=== PATIENT | male | born 1945 | race Caucasian/White ===

== ENCOUNTER 2020-05-15 12:32 | Emergency (ER) | payer MEDICARE, MEDICAID, SELFPAY ==
[2020-05-15 12:46] VITALS: BP 135/72; PULSE 101; RESP 16; TEMP 36.9; O2SAT 96; BMI 37.5
--- NOTE | 2020-05-15 13:06 | ED.SKABFB ---
HPI - Skin/Abscess/Foreign Bdy General Chief complaint: Skin/Abscess/Foreign Body Stated complaint: cyst Time Seen by Provider: 05/15/20 12:56 Source: patient Mode of arrival: ambulatory Limitations: no limitations History of Present Illness HPI narrative: 74 yo male with history of diabetes presents to the ED with tender, red, warm lump on his upper left back worsening over the last 2 weeks. He states he noticed some drainage of pus from the area but has not been able to fully see if because of its positioning. He has never had an abscess before. He denies fever or chills. He admits to poor glucose control with sugars in the 200s. He is not on insulin. MD complaint: abscess/boil Onset (ago): week(s) (2) Tetanus up to date: no Location: back Severity: moderate Quality: aching and constant Pain Consistency: constant Relieving factors: none Exacerbating factors: palpation Context: none Associated symptoms: denies other symptoms Treatments prior to arrival: none Related Data Previous Rx's Medication Instructions Recorded cephalexin 500 mg PO Q8H 7 Days #21 cap 05/15/20 doxycycline monohydrate 100 mg PO BID #14 cap 05/15/20 Allergies Allergy/AdvReac Type Severity Reaction Status Date / Time No Known Allergies Allergy Unverified 11/28/19 14:37 Review of Systems Review of Systems: Constitutional: No Fever, No Chills Gastrointestinal: No Nausea, No Vomiting, No Diarrhea, No abdominal Pain Musculoskeletal: No joint pain, No Myalgias Skin: + Skin Lesions, No rash Heme/Lymph: No Bruising, No Lymphadenopathy Endocrine: No Polyuria, No Polydipsia PMFSH Past Medical History Medical History Diabetes Surgical History (Updated 05/15/20 @ 12:49 by Bee Adames) History of vasectomy Hx of cholecystectomy Social History Social History Smoked in Last 30 Days: No Use of substances other than those prescribed or required for medical reasons: No Advance Directives: Yes Advance Directives Information Provided: Yes Advance Directives on File: No Physical Exam Vital Signs: Vital Signs: Last Vital Signs Temp 98.4 F 05/15/20 12:46 Pulse 101 H 05/15/20 12:46 Resp 16 05/15/20 12:46 BP 135/72 05/15/20 12:46 Pulse Ox 96 05/15/20 12:46 Body Mass Index 37.5 Appearance: Alert. Oriented X3. No acute distress. HEENT: normal inspection CVS: Normal heart rate and rhythm. Pulses normal. Respiratory: No respiratory distress. Skin: Skin warm and dry. Normal skin color. Normal skin turgor. Back: upper left back with 5cm enlarged, tender area with central scabbing and drainage of pus, mild surrounding erythema Extremities: atruamatic, no edema Neuro: Oriented X 3. No motor deficit. No sensory deficit. Course Course Course Narrative: 74 y/o male presenting with abscess to left upper back, amenable to drainage. see procedure note. will give abx given DM hx. Plan for re-evaluation in 2 days for packing removal. Procedures Abscess I/D Site: back Side (if applicable): left Local Anesthetic: lidocaine 2% Amount of anesthesia used (mL): 2 Sent for culture/gram staining?: No Irrigation: Yes Packing used?: iodoform Critical Care Time Critical Care Time Critical Care Time: No Discharge Plan Discharge Clinical Impression: Abscess of skin or subcutaneous tissue Qualifiers: Site of cutaneous abscess: trunk Site of cutaneous abscess of trunk: back Qualified Code(s): L02.212 - Cutaneous abscess of back [any part, except buttock] Patient Disposition: Home, Self-Care Instructions: Abscess Incision and Drainage (DC) Additional Instructions: Keep area clean and dry. Cover with gauze. Come back to the ER in 2 days for packing removal and re-evaluation. Take the prescribed antibiotics as directed. Keep tight glucose control to help allow the wound to heal appropriately. If you develop worsening pain, redness, warmth or increase in drainage come back to the ER for further evaluation. Prescriptions: New doxycycline monohydrate 100 mg capsule 100 mg PO BID Qty: 14 RF: 0 cephalexin 500 mg capsule 500 mg PO Q8H 7 Days Qty: 21 RF: 0
[2020-05-15] MEDS: Lidocaine HCl 2 % MPF 5 ML VIAL INFILTRATI (13:31)
== END 2020-05-15 13:37 | disposition home or self-care (01) ==
PROVIDERS: Emergency Provider Emergency Medicine; PCP Internal Medicine
DX: L02.212 Cutaneous abscess of back [any part, except buttock and flank] (principal); E11.9 Type 2 diabetes mellitus without complications
CPT/HCPCS: 10060; 99283; 99284

== ENCOUNTER 2020-05-17 07:47 | Emergency (ER) | payer MEDICARE, MEDICAID, SELFPAY ==
[2020-05-17 07:51] VITALS: BP 151/80; PULSE 83; RESP 16; TEMP 36.5; O2SAT 97; BMI 37.9
--- NOTE | 2020-05-17 08:20 | ED.WOUNDLAC ---
HPI - Wound/Laceration General Chief Complaint: Wound/Laceration Stated Complaint: WOUND CHECK Time Seen by Provider: 05/17/20 08:13 Source: patient Mode of arrival: ambulatory Limitations: no limitations History of Present Illness HPI narrative: Patient comes emergency room for a wound check. Patient had an abscess drained on his left upper back 2 days ago. Patient is currently taking doxycycline and cephalexin, states he feels better, denies fever chills, states the pain has greatly improved. Related Data Previous Rx's Medication Instructions Recorded cephalexin 500 mg PO Q8H 7 Days #21 cap 05/15/20 doxycycline monohydrate 100 mg PO BID #14 cap 05/15/20 Allergies Allergy/AdvReac Type Severity Reaction Status Date / Time No Known Allergies Allergy Unverified 11/28/19 14:37 Review of Systems Review of Systems: Constitutional : No Weight loss, No Fever, No Chills, No Night Sweats, No Fatigue, No Malaise ENT/Mouth : No Hearing loss, No Ear Pain, No Nasal Congestion, No Sinus Pain, No Hoarseness, No sore throat, No Rhinorrhea, No Swallowing Difficulty Eyes: No Eye Pain, No Swelling, No Redness, No Foreign Body, No Discharge, No Vision Changes Cardiovascular : No Chest Pain, No SOB, No Dyspnea on Exertion, No Orthopnea, No Edema, No Palpitations Respiratory : No Cough, No Sputum, No Wheezing, No Smoke Exposure, No Dyspnea Gastrointestinal : No Nausea, No Vomiting, No Diarrhea, No Constipation, No abdominal Pain, No Hematochezia, No Melena Genitourinary : no irregular bleeding, No Dysuria, No Urinary Frequency, No Hematuria, No Urinary Incontinence, No Urgency, No Flank Pain, No Urinary Flow Changes, No Hesitancy Musculoskeletal : No joint pain, No Myalgias, No Joint Swelling Skin : Healing drain abscess in the back Neuro : No Weakness, No Numbness, No Paresthesias, No Loss of Consciousness, No Dizziness, No Headache Psych : No Anxiety/Panic, No Depression, No SI/HI/AH/VH, No Social Issues, Heme/Lymph: No Bruising, No Bleeding,No Lymphadenopathy Endocrine : No Polyuria, No Polydipsia, No Temperature Intolerance PMFSH Past Medical History Medical History Diabetes Surgical History History of vasectomy Hx of cholecystectomy Social History Social History Advance Directives: No Advance Directives Information Provided: No Physical Exam Vital Signs: Vital Signs: Last Vital Signs Temp 97.7 F 05/17/20 07:51 Pulse 83 05/17/20 07:51 Resp 16 05/17/20 07:51 BP 151/80 H 05/17/20 07:51 Pulse Ox 97 05/17/20 07:51 Body Mass Index 37.9 Appearance: Alert. Oriented X3. No acute distress. Eyes: Pupils equal, round and reactive to light. ENT: Pharynx normal. Neck: Normal inspection. Neck supple. No lymph nodes noted. No crepitus CVS: Normal heart rate and rhythm. Pulses normal. Normal S1 and S2 Respiratory: No respiratory distress. Breath sounds normal. No Wheezing. No rales Abdomen: Soft and nontender. No rigidity. No distention. good BS x4 Skin: Skin warm and dry. Upper back there is I drained incision in the upper back, with packing. There is a brown eschar at the 9 o'clock position, at this time it does not look necrotic, the surrounding tissue around the incision site looks slightly friable Extremities: No lower extremity edema. No lower extremity edema. No Lacerations. No Rash Neuro: Oriented X 3. No motor deficit. No sensory deficit. Moving all extermities. No slurred speech. Course Course Course Narrative: Patient's packing was removed, still has moderate purulence draining. I discussed with the patient that we should go ahead and pack it again, and have him come back in 48 hours for wound check again. The surrounding area looks slightly erythematous, nontender to touch. Patient has no fever. As mentioned above, he is currently on antibiotics. I discussed with the patient that he has to return in 48 hours to get the packing removed or changed depending on how the wound is healing. Discharge Plan Discharge Clinical Impression: Wound check, abscess Patient Disposition: Home, Self-Care Additional Instructions: Please continue taking your antibiotics as prescribed. Please return in 48 hours for wound check Prescriptions: No Action doxycycline monohydrate 100 mg capsule 100 mg PO BID Qty: 14 RF: 0 cephalexin 500 mg capsule 500 mg PO Q8H 7 Days Qty: 21 RF: 0
== END 2020-05-17 08:52 | disposition home or self-care (01) ==
PROVIDERS: Emergency Provider Emergency Medicine; PCP Internal Medicine
DX: L02.212 Cutaneous abscess of back [any part, except buttock and flank] (principal); Z79.899 Other long term (current) drug therapy; Z48.00 Encounter for change or removal of nonsurgical wound dressing
CPT/HCPCS: 99283

== ENCOUNTER 2020-05-19 07:59 | Emergency (ER) | payer MEDICARE, MEDICAID, SELFPAY ==
[2020-05-19 08:27] VITALS: BP 138/99; PULSE 91; RESP 14; TEMP 36.6; O2SAT 98; BMI 37.9
--- NOTE | 2020-05-19 09:26 | ED.RECABL ---
HPI - Recheck/Abnormal Lab/Rx General Stated Complaint: wound check Time Seen by Provider: 05/19/20 09:10 Source: patient Mode of arrival: ambulatory Limitations: no limitations History of Present Illness HPI narrative: Left upper back/posterior shoulder abscess I and D on May 15 subsequently returned on May 17 for removal and was repacked returns today as instructed for packing removal he is on Keflex and doxycycline. He has no other complaints. MD complaint: wound re-check Initial visit (ago): day(s) Initial visit for: abscess Symptoms since prior visit: no new symptoms Context: planned re-check Treatments prior to arrival: dressings Related Data Previous Rx's Medication Instructions Recorded cephalexin 500 mg PO Q8H 7 Days #21 cap 05/15/20 doxycycline monohydrate 100 mg PO BID #14 cap 05/15/20 cephalexin 500 mg PO BID 3 Days #6 cap 05/21/20 doxycycline hyclate 100 mg PO BID 3 Days #6 tab 05/21/20 Allergies Allergy/AdvReac Type Severity Reaction Status Date / Time No Known Allergies Allergy Unverified 11/28/19 14:37 Review of Systems Review of Systems: Constitutional: No Weight loss, No Fever, No Chills, No Night Sweats, No Fatigue, No Malaise ENT/Mouth: No Hearing loss, No Ear Pain, No Nasal Congestion, No Sinus Pain, No Hoarseness, No sore throat, No Rhinorrhea, No Swallowing Difficulty Eyes: No Eye Pain, No Swelling, No Redness, No Foreign Body, No Discharge, No Vision Changes Cardiovascular: No Chest Pain, No SOB, No Dyspnea on Exertion, No Orthopnea, No Edema, No Palpitations Respiratory: No Cough, No Sputum, No Wheezing, No Dyspnea Gastrointestinal: No Nausea, No Vomiting, No Diarrhea, No Constipation, No abdominal Pain, No Hematochezia, No Melena Genitourinary: No Dysuria, No Urinary Frequency, No Hematuria, No Urinary Incontinence, No Urgency, No Flank Pain, No Urinary Flow Changes, No Hesitancy Musculoskeletal: No joint pain, No Myalgias, No Joint Swelling Skin: No Skin Lesions, No rash, as noted per HPI Neuro: No Weakness, No Numbness, No Paresthesias, No Loss of Consciousness, No Dizziness, No Headache Psych: No Social Issues Heme/Lymph: No Bruising, No Bleeding,No Lymphadenopathy Endocrine: No Polyuria, No Polydipsia, No Temperature Intolerance Yes all other systems are reviewed and are negative [facility] Past Medical History Medical History Diabetes Surgical History History of vasectomy Hx of cholecystectomy Social History Social History Advance Directives: Yes Advance Directives Information Provided: No Advance Directives on File: No Physical Exam Vital Signs: Vital Signs: Last Vital Signs Temp 98 F 05/19/20 08:27 Pulse 91 05/19/20 08:27 Resp 14 05/19/20 08:27 BP 138/99 H 05/19/20 08:27 Pulse Ox 98 05/19/20 08:27 Body Mass Index 37.9 Reviewed Const: General: cooperative and healthy appearing; No acute distress or intoxicated appearing Nutritional Appearance: average body habitus Orientation/consciousness: patient oriented x3 HENMT: Head: Yes normal to inspection Ears: hearing grossly normal bilaterally Neck: Neck: Yes normal visual inspection, No positive Brudzinski's sign, No positive Kernig's sign and No tender Thyroid: Thyroid normal Chest: Chest palpation & inspection: normal inspection of the chest Resp: Effort & Inspection: normal respiratory effort Auscultation: clear to auscultation bilaterally Cardio: Jugular venous distension: no JVD Rhythm: regular rhythm Heart sounds: S1 normal heart sound present and S2 normal heart sound present : General: Yes no CVA tenderness Back/Spine/Pelvis: Back: no CVA tenderness Skin: General skin exam: no rashes or lesions noted Full body images: 1. Area of previously incised abscess with packing in place. There is only mild erythema directly to the site. There is no drainage from the site. No induration. Neuro: General: patient oriented x3 Extrem: General: Yes normal to inspection Course Course Course Narrative: Site appears to be healing well no complaints. Packing removed no further expressible drainage. No need for any additional packing. He will finish his course of doxycycline advised to follow-up with his primary care doctor for recheck in several days and this may take a while to close given the depth of the abscess. He verbalized understanding offers no other complaints. Comfortable plan. Discharge Plan Discharge Clinical Impression: Abscess packing removal Patient Disposition: Home, Self-Care Instructions: Abscess Follow-up (ED) Additional Instructions: Please continue to take her antibiotics as previously prescribed The previously abscess site on the posterior left shoulder appears to be healing well The packing was removed At this time this site does not need to be repacked. Given the nature of the of abscess location please keep this dry and clean Warm compresses Have recheck in 3-5 days at your primary care Return if any concerns or worsening symptoms Thank you Prescriptions: No Action doxycycline monohydrate 100 mg capsule 100 mg PO BID Qty: 14 RF: 0 cephalexin 500 mg capsule 500 mg PO Q8H 7 Days Qty: 21 RF: 0 doxycycline hyclate 100 mg tablet 100 mg PO BID 3 Days Qty: 6 RF: 0 cephalexin 500 mg capsule 500 mg PO BID 3 Days Qty: 6 RF: 0 Referrals: Pearl Nino MD [Primary Care Provider] - 3 days Interventions: ED Discharge Assessment Last Done: 05/19/20 09:34 Discharge Date/Time: 05/19/20 09:40
== END 2020-05-19 09:40 | disposition home or self-care (01) ==
PROVIDERS: Emergency Provider Emergency Medicine Emergency Medical Services; PCP Internal Medicine
DX: L02.212 Cutaneous abscess of back [any part, except buttock and flank] (principal); M54.6 Pain in thoracic spine
CPT/HCPCS: 99282

== ENCOUNTER 2020-05-21 08:59 | Emergency (ER) | payer MEDICARE, MEDICAID, SELFPAY ==
[2020-05-21 11:13] VITALS: BP 117/77; PULSE 97; RESP 17; TEMP 36.8; O2SAT 97; BMI 44.2
--- NOTE | 2020-05-21 11:23 | ED.RECABL ---
HPI - Recheck/Abnormal Lab/Rx General Chief Complaint: Skin/Abscess/Foreign Body Stated Complaint: follow up boil Time Seen by Provider: 05/21/20 11:15 Source: patient Mode of arrival: ambulatory Limitations: no limitations History of Present Illness HPI narrative: 74-year-old male presenting to the ED for recheck wound Left upper back/posterior shoulder I and D on May 15 return on May 17 for removal of packing and was repacked returned again on 05/19/2020 for recheck although did not have packing replaced was instructed to follow with PCP although patient came here. Reports he still has 2 days of the doxycycline and Keflex. He was prescribed a total 7 days for antibiotics. Denies any other symptoms complaints or concerns at this time. MD complaint: wound re-check Initial visit (ago): day(s) Initial visit for: cellulitis and abscess Returns today for: wound recheck and cellulitis follow-up Symptoms since prior visit: no new symptoms and improved Associated symptoms: none Treatments prior to arrival: given antibiotics on (See above) Related Data Previous Rx's Medication Instructions Recorded cephalexin 500 mg PO Q8H 7 Days #21 cap 05/15/20 doxycycline monohydrate 100 mg PO BID #14 cap 05/15/20 cephalexin 500 mg PO BID 3 Days #6 cap 05/21/20 doxycycline hyclate 100 mg PO BID 3 Days #6 tab 05/21/20 Allergies Allergy/AdvReac Type Severity Reaction Status Date / Time No Known Allergies Allergy Unverified 11/28/19 14:37 Review of Systems Review of Systems: Constitutional : No Fever, No Chills, Skin : + Wound/surrounding erythema, No skin laceration, No Foreign bodies, No rash Neuro : No Weakness, No Numbness/tingling Yes all other systems are reviewed and are negative PMFSH Past Medical History Attestation statement: The following information was validated with the patient. Medical History Diabetes Surgical History History of vasectomy Hx of cholecystectomy Social History Social History Advance Directives: Yes Advance Directives Information Provided: No Advance Directives on File: No Physical Exam Vital Signs: Vital Signs: Last Vital Signs Temp 98.3 F 05/21/20 11:13 Pulse 97 05/21/20 11:13 Resp 17 05/21/20 11:13 BP 117/77 05/21/20 11:13 Pulse Ox 97 05/21/20 11:13 Body Mass Index 44.2 vital signs have been reviewed as normal and appeared to be correct. Blood pressure normal. Heart rate normal. Respiration rate normal. Temperature normal. Oxygen saturation normal. Appearance: Alert. Oriented X3. No acute distress. Head: Normal external exam. Normocephalic. Atraumatic. Eyes: PERRLA. EOMI. Conjunctiva and sclera normal. Eyelids normal. ENT: Pharynx normal. Uvula midline. Moist mucous membranes. Neck: Normal inspection. Neck supple. FROM. No adenopathy. No meningeal signs. No neck mass noted. CVS: Normal heart rate and rhythm. Heart sound normal. Respiratory: No respiratory distress. Painless inspiration. Back: Full range of motion noted. Skin: Wound to left upper back/posterior left shoulder no purulent drainage noted or foreign bodies. Mild surrounding erythema. Skin warm and dry. Normal skin color. Normal skin turgor. No rashes/lesions/lacerations noted. Extremities: Extremities exhibit normal range of motion. Extremities nontender. Neuro: Oriented X 3. No motor deficit. No sensory deficit. Reflexes normal. Course Course Course Narrative: 74-year-old male presenting for his 3rd recheck for wound that was I indeed on May 15 placed on doxycycline and Keflex for a total of 7 days on exam today patient has mild surrounding erythema no purulent drainage I flushed it twice with normal saline and no drainage. Place the nonadherent dressing. Explained to the patient that I would put him on 3 additional days of antibiotics for a total of 10 days. Instructed to follow up with his primary care provider or wound clinic and if he cannot get into Wound Clinic to follow up with his primary care provider. He understood this and agree with the plan. MDM - Recheck/Abnormal Lab/Rx Medical Records Attestation: I reviewed the patient's medical records. Discharge Plan Discharge Clinical Impression: Encounter for recheck of abscess following incision and drainage Patient Disposition: Home, Self-Care Instructions: Wound Healing and Your Diet (ED) Additional Instructions: You can continue taking your previously prescribed antibiotics as previously prescribed and please follow-up with your primary care provider within the next week for a follow-up for your wound and I gave you the number below for wound care call them today to see if you can follow-up within the next week if not please call your primary care provider. I will not be changing her antibiotics today another 3 days for total of 10 days instead of 7. Prescriptions: New doxycycline hyclate 100 mg tablet 100 mg PO BID 3 Days Qty: 6 RF: 0 cephalexin 500 mg capsule 500 mg PO BID 3 Days Qty: 6 RF: 0 No Action doxycycline monohydrate 100 mg capsule 100 mg PO BID Qty: 14 RF: 0 cephalexin 500 mg capsule 500 mg PO Q8H 7 Days Qty: 21 RF: 0 Referrals: Kallie Joe PA [Physician [employer]] - 1 day (Call this week to make a follow-up appointment within the next 1-2 weeks if not follow up with her primary care provider) Print Language: Belgian
== END 2020-05-21 11:45 | disposition home or self-care (01) ==
LOC: HO.ED 11:27
PROVIDERS: Emergency Provider Emergency Medicine Emergency Medical Services; PCP Internal Medicine
DX: L02.212 Cutaneous abscess of back [any part, except buttock and flank] (principal); Z79.899 Other long term (current) drug therapy
CPT/HCPCS: 99283

== ENCOUNTER 2020-06-03 08:56 | Outpatient (RCR) | payer MEDICARE, MEDICAID, SELFPAY | END 2020-06-09 13:53 | disposition home or self-care (01) | LOC: HO.WCC 08:56 | PROVIDERS: Visit Provider Surgery | DX: L02.212 Cutaneous abscess of back [any part, except buttock and flank] (principal) | CPT/HCPCS: 99212 ==

== ENCOUNTER 2020-10-23 09:13 | Emergency (ER) | payer MEDICARE, MEDICAID, SELFPAY ==
--- NOTE | ~2020-10-23 | CT_ITS ---
EXAMINATION: CT ABDOMEN AND PELVIS WITH CONTRAST CLINICAL INFORMATION: Abdominal pain nausea and vomiting. Distended. COMPARISON: CT scan of September 28, 2013 TECHNIQUE: Multidetector volumetric images were obtained from the superior aspect of the liver through the pubic symphysis following administration 85 mL of Omnipaque 350 intravenous contrast. Sagittal and coronal reformatted images were obtained on the technologist's workstation. Oral contrast: No This CT examination was performed using dose optimization techniques as appropriate, variously including the following: *Automated exposure control *Adjustment of mA and/or kV according to patient size (this includes techniques or standardized protocols for targeted exams where dose is matched to indication/reason for exam; i.e. extremities or head) *Use of iterative reconstruction technique DLP: 759 mGy-cm FINDINGS: LUNG BASES: The visualized lung bases are unremarkable. There is right middle lobe scarring present. No pleural or pericardial effusion. Coronary artery calcifications present as well as aortic and mitral valve calcifications. LIVER, GALLBLADDER, AND BILIARY TREE: There is fatty infiltration of the liver. No focal mass is seen. No intrahepatic bile duct dilatation. There is a Eden's lobe present with vertical span of approximately 25 cm. Gallbladder is not identified. PANCREAS: Unremarkable. SPLEEN: Unremarkable. ADRENAL GLANDS: Unremarkable. KIDNEYS AND URETERS: There are bilateral renal cysts present the largest within the left kidney measuring approximately 9 x 7 cm in size. There is fullness of the upper collecting systems bilaterally but with normal-appearing ureters. No calculi identified. A few of the low-density renal lesions are too small to definitely characterize as cyst. BLADDER: Unremarkable. GASTROINTESTINAL TRACT: No dilated loops of large or small bowel. No free air or free fluid. No pericolonic inflammatory change is seen. The appendix is not visualized. ABDOMINAL WALL: No significant hernia is appreciated. LYMPH NODES: Normal. VASCULAR: Mild aortoiliac calcified plaque without abdominal aortic aneurysm. Portal vein is patent. PELVIC VISCERA: Unremarkable. OSSEOUS STRUCTURES: No destructive bony lesions identified. Multilevel degenerative disc disease is seen. CT/CT abdomen pelvis w con IMPRESSION: Fatty infiltration of the liver with hepatomegaly. Bilateral renal cysts without evidence of obstructive uropathy. No evidence of ileus or obstruction.
[2020-10-23 09:26] VITALS: BP 164/75; PULSE 88; RESP 16; TEMP 37.1; O2SAT 95; BMI 37.5
--- NOTE | 2020-10-23 09:26 | ED_ITS ---
HPI - Nausea/Vomiting/Diarrhea General Chief complaint: Abdominal Pain Stated complaint: vomiting Time Seen by Provider: 10/23/20 09:25 Source: patient Mode of arrival: ambulatory Limitations: no limitations History of Present Illness MD elicited complaint: nausea, vomiting and abdominal pain Onset (ago): day(s) (last night) Description of vomiting: food contents Associated nausea: Yes Associated abdominal pain: Yes Location of pain: diffuse Radiation: diffuse Pain consistency: constant Severity: moderate Quality: aching Exacerbating factors: eating (ate a large amount of hard salami) Relieving factors: none Context: possible food poisoning Associated symptoms: denies other symptoms Related Data Previous Rx's Medication Instructions Recorded cephalexin 500 mg capsule 500 mg PO Q8H 7 Days #21 cap 05/15/20 doxycycline monohydrate 100 mg 100 mg PO BID #14 cap 05/15/20 capsule cephalexin 500 mg capsule 500 mg PO BID 3 Days #6 cap 05/21/20 doxycycline hyclate 100 mg tablet 100 mg PO BID 3 Days #6 tab 05/21/20 ondansetron 4 mg disintegrating 4 mg PO Q8H PRN #20 tab 10/23/20 tablet Allergies Allergy/AdvReac Type Severity Reaction Status Date / Time No Known Allergies Allergy Unverified 11/28/19 14:37 Review of Systems Review of Systems: Constitutional : No Weight loss, No Fever, No Chills ENT/Mouth : No sore throat, No Rhinorrhea Eyes: No Swelling, No Redness Cardiovascular : No Chest Pain, No SOB, NoEdema Respiratory : No Cough, No Sputum, No Wheezing Gastrointestinal : Positive Nausea, Positive Vomiting, no Diarrhea, positive abdominal Pain, No Hematochezia, No Melena Genitourinary : No Dysuria, No Urinary Frequency, No Hematuria, No Urgency Musculoskeletal : No joint pain, No Myalgias, No Joint Swelling Skin : No Skin Lesions, No rash Neuro : No Weakness, No Numbness, No Dizziness, No Headache Psych : No Anxiety/Panic, No Depression Heme/Lymph: No Bruising, No Lymphadenopathy Endocrine : No Polyuria, No Polydipsia All other systems reviewed and are negative. Gastrointestinal: Gastrointestinal: Reports nausea PMFSH Past Medical History Attestation statement: The following information was validated with the patient. Medical History Diabetes Surgical History History of vasectomy Hx of cholecystectomy Social History Social History (Updated 10/23/20 @ 09:33 by Hermila Saini DO) Alcohol intake: never Patient Tobacco Use Status: Never used Tobacco Use of substances other than those prescribed or required for medical reasons: No Advance Directives: Yes Advance Directives Information Provided: Yes Advance Directives on File: No Physical Exam Vital Signs: Vital Signs: Last Vital Signs Temp 98.7 F 10/23/20 09:26 Pulse 88 10/23/20 09:26 Resp 18 10/23/20 10:25 BP 164/75 H 10/23/20 09:26 Pulse Ox 95 10/23/20 09:26 Body Mass Index 37.5 Appearance: Alert. Oriented X3. No acute distress. Eyes: Pupils equal, round and reactive to light. ENT: Pharynx normal. Neck: Normal inspection. Neck supple. CVS: Normal heart rate and rhythm. Pulses normal. Respiratory: No respiratory distress. Breath sounds normal. Abdomen: Soft and distended mild diffuse ttp no rebound or guarding Skin: Skin warm and dry. Normal skin color. Normal skin turgor. Extremities: No lower extremity edema. No calf ttp Neuro: Oriented X 3. No motor deficit. No sensory deficit. Course Course Course Narrative: can tolerate saliva and drank 6 ounces of water - doubt food bolus impaction as these stay down but he keeps forcefully dry heaving and coughing but no emesis comes up able to tolerate PO CT scan negative stable for DC MDM - Nausea/Vomiting/Diarrhea MDM Narrative Medical decision making narrative: 74 yo male hx of DM prior cholecystectomy comes in with diffuse abdominal pain and distention post eating hard salami - at this time labs, IVF, IV morphine / zofran for symptom control, CT scan for obstruction. Dispo per results and findings. Lab Data Result diagrams: 10/23/20 10:16 10/23/20 10:16 Labs: Lab Results 10/23/20 10/23/20 10/23/20 Range/Units 10:16 10:16 10:16 WBC 9.7 (4.8-10.8) X10*3/uL RBC 5.48 (4.60-5.80) X10*6/uL Hgb 16.9 (14.0-18.0) g/dl Hct 48.6 (42-52) % MCV 88.7 (80-98) fL MCH 30.8 (27.0-33.0) pg MCHC 34.8 (31.0-36.0) g/dl RDW 13.5 (11.0-16.0) % Plt Count 210 (160-400) X10*3/uL MPV 9.5 (9.4-12.4) fL Immature Gran % (Auto) 1.1 H (0.0-0.4) % Neut % (Auto) 73.9 H (45-73) % Lymph % (Auto) 14.5 L (20-40) % [place] % (Auto) 5.7 (2-11) % Eos % (Auto) 4.4 H (0-4) % Baso % (Auto) 0.4 (0-2) % Lymph # (Auto) 1.4 (1.2-4.9) X10*3/uL [place] # (Auto) 0.6 (0.1-1.2) X10*3/uL Eos # (Auto) 0.4 (0.0-0.4) X10*3/uL Baso # (Auto) 0.0 (0.0-0.2) X10*3/uL Abs Immat Gran (auto) 0.11 H (0.00-0.03) X10*3/uL Absolute Neuts (auto) 7.2 (2.0-8.3) X10*3/uL Absolute Nucleated RBC 0.000 (0.0-0.012) X10*3/uL Nucleated RBC % (auto) 0.0 (0.0-0.2) /100WBC Sodium 139 (135-145) mmol/L Potassium 4.1 (3.3-5.1) mmol/L Chloride 104 (96-108) mmol/L Carbon Dioxide 22 (22-29) mmol/L Anion Gap 17 (12-20) BUN 7 L (9-16) mg/dL Creatinine 1.01 (0.5-1.4) mg/dL Estim Creat Clear Calc 76.6 Estimated GFR > 60 Random Glucose 362 H* (60-115) mg/dL Calcium 9.3 (8.4-10.2) mg/dL Magnesium 1.7 (1.6-2.6) mg/dL Total Bilirubin 1.3 H (0.0-1.0) mg/dL Direct Bilirubin 0.5 (0.0-0.5) mg/dL AST 22 (5-37) U/L ALT 29 (0-40) U/L Alkaline Phosphatase 109 (39-117) U/L Total Protein 7.1 (6.5-8.0) g/dL Albumin 4.3 (3.5-5.0) g/dL Lipase 25 (8-78) U/L Urine Color Urine Appearance Urine pH (5.0-8.0) Ur Specific [place] (1.005-1.025) Urine Protein (NEG-TRACE) MG/DL Urine Glucose (UA) (NEG) MG/DL Urine Ketones (NEG) MG/DL Urine Blood (NEG) Urine Nitrite (NEG) Ur Leukocyte Esterase (NEG) Urine RBC (0) /HPF Urine WBC (0-4) /HPF Ur Squamous Epith Cells /LPF Calcium Oxalate Crystal /LPF Urine Bacteria /LPF Urine Mucus /LPF COVID-19 (MARNIE) Negative (Negative) COVID-19 Clin Com See Note 10/23/20 Range/Units 10:17 WBC (4.8-10.8) X10*3/uL RBC (4.60-5.80) X10*6/uL Hgb (14.0-18.0) g/dl Hct (42-52) % MCV (80-98) fL MCH (27.0-33.0) pg MCHC (31.0-36.0) g/dl RDW (11.0-16.0) % Plt Count (160-400) X10*3/uL MPV (9.4-12.4) fL Immature Gran % (Auto) (0.0-0.4) % Neut % (Auto) (45-73) % Lymph % (Auto) (20-40) % [place] % (Auto) (2-11) % Eos % (Auto) (0-4) % Baso % (Auto) (0-2) % Lymph # (Auto) (1.2-4.9) X10*3/uL [place] # (Auto) (0.1-1.2) X10*3/uL Eos # (Auto) (0.0-0.4) X10*3/uL Baso # (Auto) (0.0-0.2) X10*3/uL Abs Immat Gran (auto) (0.00-0.03) X10*3/uL Absolute Neuts (auto) (2.0-8.3) X10*3/uL Absolute Nucleated RBC (0.0-0.012) X10*3/uL Nucleated RBC % (auto) (0.0-0.2) /100WBC Sodium (135-145) mmol/L Potassium (3.3-5.1) mmol/L Chloride (96-108) mmol/L Carbon Dioxide (22-29) mmol/L Anion Gap (12-20) BUN (9-16) mg/dL Creatinine (0.5-1.4) mg/dL Estim Creat Clear Calc Estimated GFR Random Glucose (60-115) mg/dL Calcium (8.4-10.2) mg/dL Magnesium (1.6-2.6) mg/dL Total Bilirubin (0.0-1.0) mg/dL Direct Bilirubin (0.0-0.5) mg/dL AST (5-37) U/L ALT (0-40) U/L Alkaline Phosphatase (39-117) U/L Total Protein (6.5-8.0) g/dL Albumin (3.5-5.0) g/dL Lipase (8-78) U/L Urine Color YELLOW Urine Appearance CLEAR Urine pH 5.5 (5.0-8.0) Ur Specific [place] 1.025 (1.005-1.025) Urine Protein NEG (NEG-TRACE) MG/DL Urine Glucose (UA) >=1000 H (NEG) MG/DL Urine Ketones 5 (NEG) MG/DL Urine Blood NEG (NEG) Urine Nitrite NEG (NEG) Ur Leukocyte Esterase NEG (NEG) Urine RBC 0 (0) /HPF Urine WBC 0 (0-4) /HPF Ur Squamous Epith Cells NONE /LPF Calcium Oxalate Crystal 2+ /LPF Urine Bacteria NONE /LPF Urine Mucus 1+ /LPF COVID-19 (MARNIE) (Negative) COVID-19 Clin Com Discharge Plan Discharge Clinical Impression: Vomiting Qualifiers: Vomiting type: unspecified Vomiting Intractability: non-intractable Nausea presence: with nausea Qualified Code(s): R11.2 - Nausea with vomiting, unspecified Patient Disposition: Home, Self-Care Instructions: Acute Nausea and Vomiting (ED) Additional Instructions: return to ED for any worsening symptoms or concerns CT scan of abdomen no acute findings. chronic issues: please follow up with your doctor regarding these, will likely just need surveillance Fatty infiltration of the liver with hepatomegaly. ? Bilateral renal cysts without evidence of obstructive uropathy. ? No evidence of ileus or obstruction.? Prescriptions: New ondansetron 4 mg tablet,disintegrating 4 mg PO Q8H PRN (Reason: nausea and vomiting) Qty: 20 RF: 0 No Action doxycycline monohydrate 100 mg capsule 100 mg PO BID Qty: 14 RF: 0 cephalexin 500 mg capsule 500 mg PO Q8H 7 Days Qty: 21 RF: 0 doxycycline hyclate 100 mg tablet 100 mg PO BID 3 Days Qty: 6 RF: 0 cephalexin 500 mg capsule 500 mg PO BID 3 Days Qty: 6 RF: 0 Referrals: Pearl Nino MD [Primary Care Provider] - 5 days
[2020-10-23 10:24] LABS: Basophils Percent Auto 0.4 % (0-2); Eosinophils Absolute Auto 0.4 X10*3/uL (0.0-0.4); Eosinophils Percent Auto 4.4 % (0-4); Hematocrit 48.6 % (42-52); Hemoglobin 16.9 g/dl (14.0-18.0); Imm Gran Abs Auto 0.11 X10*3/uL (0.00-0.03); Imm Gran Pct Auto 1.1 % (0.0-0.4); Lymphocytes Absolute Auto 1.4 X10*3/uL (1.2-4.9); Lymphocytes Percent Auto 14.5 % (20-40); MANUAL DIFF FLAG NO; Mean Corpuscular HGB Conc 34.8 g/dl (31.0-36.0); Mean Corpuscular Hemoglobin 30.8 pg (27.0-33.0); Mean Corpuscular Volume 88.7 fL (80-98); Mean Platelet Volume 9.5 fL (9.4-12.4); Monocytes Absolute Auto 0.6 X10*3/uL (0.1-1.2); Monocytes Percent Auto 5.7 % (2-11); Neutrophils Absolute Auto 7.2 X10*3/uL (2.0-8.3); Neutrophils Percent Auto 73.9 % (45-73); Platelet Count 210 X10*3/uL (160-400); Red Blood Count 5.48 X10*6/uL (4.60-5.80); Red Cell Distribution Width 13.5 % (11.0-16.0); White Blood Count 9.7 X10*3/uL (4.8-10.8)
[2020-10-23 10:25] VITALS: RESP 18
[2020-10-23] MEDS: ondansetron HCL 4 MG/2 ML VIAL IVPUSH (10:25)
[2020-10-23] MEDS: Metoclopramide HCl 10 MG/2 ML VIAL IVPUSH (10:25)
[2020-10-23] MEDS: Morphine Sulfate 4 MG/ML CARTRIDGE IVPUSH (10:25)
[2020-10-23] MEDS: diphenhydrAMINE HCL 50 MG/ML VIAL 25 MG IVPUSH (10:25)
[2020-10-23] MEDS: 0.9 % Sodium Chloride 1,000 ML 999 ML IVCONT (10:26)
[2020-10-23 10:28] LABS: Glucose Urine UA >=1000 MG/DL (NEG); Leukocyte Esterase Urine NEG (NEG); Nitrite Urine NEG (NEG); PH 5.5 (5.0-8.0); Specific Gravity - Urine 1.025 (1.005-1.025); Urine Blood NEG (NEG); Urine Ketones 5 MG/DL (NEG); Urine Protein NEG (NEG-TRACE)
[2020-10-23 10:30] LABS: Appearance Urine CLEAR; Color Urine YELLOW
[2020-10-23 10:35] LABS: Calcium Oxalate Crystals Urine 2+ /LPF; Mucus Urine 1+ /LPF; RBC Urine 0 /HPF (0); WBC Urine 0 /HPF (0-4)
[2020-10-23 10:48] LABS: COVID-19 Test Negative (Negative)
[2020-10-23 10:56] LABS: Alanine Aminotransferase 29 U/L (0-40); Albumin Level 4.3 g/dL (3.5-5.0); Alkaline Phosphatase 109 U/L (39-117); Anion Gap 17 (12-20); Aspartate Amino Transferase 22 U/L (5-37); Bilirubin Direct 0.5 mg/dL (0.0-0.5); Bilirubin Total 1.3 mg/dL (0.0-1.0); Blood Urea Nitrogen 7 mg/dL (9-16); Calcium 9.3 mg/dL (8.4-10.2); Carbon Dioxide 22 mmol/L (22-29); Chloride 104 mmol/L (96-108); Creatinine Clr Calc Pharmacy 76.6; Estimated Glomerular Filt Rate > 60; Glucose Random 362 mg/dL (60-115); Lipase 25 U/L (8-78); Magnesium 1.7 mg/dL (1.6-2.6); Potassium 4.1 mmol/L (3.3-5.1); Sodium 139 mmol/L (135-145); Total Protein 7.1 g/dL (6.5-8.0)
--- NOTE | 2020-10-23 11:42 | PC.NURSE ---
pt anxious, states he wants to go home because he feels better. PT awaits CT scan and tech has arrived to take pt to scan.
[2020-10-23] MEDS: iohexoL 350 MG/ML 100 ML INFUS..BTL 85 ML IV (12:02)
[2020-10-23 13:03] VITALS: BP 129/63; PULSE 77; RESP 16; O2SAT 99
== END 2020-10-23 13:27 | disposition home or self-care (01) ==
PROVIDERS: Emergency Provider Emergency Medicine; PCP Internal Medicine
DX: R11.2 Nausea with vomiting, unspecified (principal); R10.9 Unspecified abdominal pain; R19.7 Diarrhea, unspecified; Z20.822 Contact with and (suspected) exposure to COVID-19; Z79.899 Other long term (current) drug therapy
CPT/HCPCS: 36415; 74177; 80048; 80076; 81001; 83690; 83735; 85025; 87635; 96361; 96374; 96375; 99284; J1200; J2270; J2405; J2765; Q9967

== ENCOUNTER 2021-01-09 09:06 | Emergency (ER) | payer MEDICARE, MEDICAID, SELFPAY ==
--- NOTE | ~2021-01-09 | XR_ITS ---
EXAMINATION: XR CHEST CLINICAL INFORMATION: Cough and shortness of breath COMPARISON: None TECHNIQUE: Frontal view of the chest was obtained. FINDINGS: The cardiac and mediastinal contours are stable. The lungs are clear. There is no pleural effusion or pneumothorax. There is mild degenerative changes of the thoracic spine and curvature of the lower thoracic spine to the left. XR/XR chest 1V IMPRESSION: No evidence for acute disease in the chest.
[2021-01-09 09:15] VITALS: BP 124/76; PULSE 108; RESP 18; TEMP 36.8; O2SAT 94; BMI 37.3
--- NOTE | 2021-01-09 09:33 | ED_ITS ---
HPI - General Adult General Chief complaint: General Medical Stated complaint: UNABLE TO SLEEP Time Seen by Provider: 01/09/21 09:19 Source: patient Mode of arrival: ambulatory Limitations: no limitations History of Present Illness HPI narrative: 75 year old male with past medical history of diabetes presents to the emergency department with concerns of dry cough that started last night. He states that the cough started suddenly, and he has not been able to stop coughing, he states he was unable to sleep last night, because all he was doing was coughing. He denies sputum production. He denies chest pain, fevers, shortness of breath, chills, nausea, vomiting, diarrhea, weakness, recent sick contacts. Patient is up-to-date on COVID vaccines. He is not a smoker, never smoked. Onset (ago): day(s) (1) Severity: severe Severity scale (1-10): 10 Quality: constant Pain Consistency: constant Relieving factors: none Exacerbating factors: none Associated symptoms: denies other symptoms Treatments prior to arrival: none Related Data Previous Rx's Medication Instructions Recorded cephalexin 500 mg capsule 500 mg PO Q8H 7 Days #21 cap 05/15/20 doxycycline monohydrate 100 mg 100 mg PO BID #14 cap 05/15/20 capsule cephalexin 500 mg capsule 500 mg PO BID 3 Days #6 cap 05/21/20 doxycycline hyclate 100 mg tablet 100 mg PO BID 3 Days #6 tab 05/21/20 ondansetron 4 mg disintegrating 4 mg PO Q8H PRN #20 tab 10/23/20 tablet benzonatate 100 mg capsule 100 mg PO BID PRN #14 cap 01/09/21 (Marita Lozada) Allergies Allergy/AdvReac Type Severity Reaction Status Date / Time No Known Allergies Allergy Unverified 11/28/19 14:37 Review of Systems Review of Systems: Yes all other systems are reviewed and are negative Constitutional: Constitutional: Reports no additional constitutional complaints, Denies body ache(s), Denies chills, Denies fever(s), Denies headache(s) and Denies weakness Eyes: Eyes: Reports no additional eye complaints and Denies change in vision ENT: Reports system reviewed and no additional complaints, except as documented, Denies dizziness, Denies headache(s), Denies nasal congestion, Denies nasal discharge and Denies neck pain Cardiovascular: Cardiovascular: Reports no additional cardiovascular complaints, Denies chest pain, Denies leg edema and Denies dyspnea Respiratory: Respiratory: Reports no additional respiratory complaints, Reports cough and Denies dyspnea Gastrointestinal: Gastrointestinal: Reports no additional gastrointestinal complaints, Denies abdominal pain, Denies diarrhea, Denies nausea and Denies vomiting Genitourinary: Genitourinary: Denies urinary incontinence Musculoskeletal: Musculoskeletal: Reports no additional musculoskeletal complaints, Denies back pain, Denies arthralgias, Denies joint swelling, Denies neck pain, Denies numbness and Denies tingling Integumentary/Breasts: Skin/Breast: Reports system reviewed and no additional complaints, except as docu and Denies rash Neurologic: Reports system reviewed and no additional complaints, except as documented, Denies Abnormal speech present, Denies dizziness, Denies headache(s), Denies numbness, Denies tingling and Denies weakness PMFSH Past Medical History Attestation statement: The following information was validated with the patient. Source: old records reviewed and nursing notes reviewed Medical History Diabetes Surgical History History of vasectomy Hx of cholecystectomy Social History Social History (Updated 10/23/20 @ 09:33 by Hermila Saini DO) Alcohol intake: unknown Patient Tobacco Use Status: Never used Tobacco Use of substances other than those prescribed or required for medical reasons: No Advance Directives: Yes Advance Directives Information Provided: Yes Advance Directives on File: No Physical Exam Vital Signs: Vital Signs: Last Vital Signs Temp 98.3 F 01/09/21 09:15 Pulse 111 H 01/09/21 10:00 Resp 18 01/09/21 09:15 BP 124/76 01/09/21 09:15 Pulse Ox 93 01/09/21 10:00 Body Mass Index 37.3 Const: General: cooperative, healthy appearing, comfortable and no acute distress Orientation/consciousness: patient oriented x3 Limitations: no limitations HENMT: Head: Yes normal to inspection Ears: hearing grossly normal bilaterally General nose exam: Normal external nose present Face and sinus: Yes normal facial exam Mouth: Normal oral and palatal mucosa present Throat: Yes posterior oropharynx normal Eyes: General: appearance normal, both eyes and all related structures Pupils: Equal, round and reactive pupils present Neck: Neck: Yes normal visual inspection Chest: Chest palpation & inspection: normal inspection of the chest Resp: Effort & Inspection: normal respiratory effort Auscultation: clear to auscultation bilaterally Cardio: Rate: regular rate Rhythm: regular rhythm Peripheral pulses: Peripheral pulses 2+ throughout GI: Inspection: Yes normal to inspection Palpation (GI): Soft to palpation and nontender Auscultation: normal bowel sounds Back/Spine/Pelvis: Thoracic/Lumbar Spine: thoracic and lumbar spine normal to inspection Skin: General skin exam: no rashes or lesions noted Neuro: General: patient oriented x3, no focal motor deficits and normal sensation to monofilament Cranial nerves: Yes Equal, round and reactive pupils present Cognition (Neuro): normal cognition Speech: No Abnormal speech present Gait exam (Neuro): Normal gait present Motor exam (neuro): 5/5 motor strength present throughout Extrem: General: Yes normal to inspection Course Reevaluation(s) Reevaluation #1: Patient has been found to be COVID positive. He will be educated on isolation. He will also be educated on possible treatment with monoclonal antibodies, and will be provided with the information, which he can follow up with after he leaves the emergency department. An ambulatory 02 will be done prior to his D/C to ensure he is safe for DC home. At this time he is 95% on RA. Time: 09:48 Reevaluation #2: CXR negative. Ambulatory O2 between 93-95% with ambulation pulse around 100. Patient is afebrile at this time. He has been advised to return to the emergency department with new or worsening symptoms such as shortness of breath, fevers, chills. He is safe for discharge home, with PCP follow-up, and patient states he is interested in the monoclonal antibody infusion in [place] he has been given the information and they have been called. I shared with them his information and they will reach out to him around 11 am today to do his intake. Time: 10:02 Medical Decision Making [facility] Narrative Medical decision making narrative: 929 75-year-old male past medical history diabetes presents to the ED with a dry cough that started last night, that didn't allow him to sleep last night. He denies chest pain, shortness breath, fevers, chills, nausea, vomiting. He is vaccinated against COVID-19. No recent sick contacts. Not a smoker. Upon physical examination lungs are clear to auscultation, patient is in no acute distress. S1 and S2 appreciated free of murmurs. Abdomen soft nontender nondistended. No focal neuro deficits. Plan at this time is to obtain a chest x-ray, and COVID swab. Medical Records Medical records reviewed: Yes I reviewed the patient's medical records. Lab Data Lab results reviewed: Yes I reviewed the patient's lab results. Labs: Lab Results 01/09/21 Range/Units 09:20 COVID-19 (MARNIE) Positive A (Negative) COVID-19 Clin Com See Note Imaging Data Chest x-ray: Attestation: I personally reviewed and interpreted this imaging study as follows: Radiologist's impression: FINDINGS: The cardiac and mediastinal contours are stable. The lungs are clear. There is no pleural effusion or pneumothorax. There is mild degenerative changes of the thoracic spine and curvature of the lower thoracic spine to the left. XR/XR chest 1V IMPRESSION: No evidence for acute disease in the chest. ? Discharge Plan Discharge Clinical Impression: COVID-19, Cough Patient Disposition: Home, Self-Care Additional Instructions: We have provided you with information about monoclonal antibody infusions, a treatment that helps prevent the virus from worsening. They will reach out to you around 11 am to do your intake. Marita Karlakirill have been sent to your pharmacy for cough Follow up with your PCP Return to the emergency department with new or worsening symptoms We have tested you today for COVID 19 and you tested positive. Take tylenol or motrin if able as needed for pain or fever. Stay well hydrated with fluids like water, gatorade and/or powerade. Wash hands at home. If living with others try to self isolate if possible. If unable wear a mask around others in your home and wash hands frequently. You will need to self isolate for a total of 14 days from when your symptoms started. You should return to the emergency department for severe shortness of breath, chest pain or fever which does not respond to both tylenol and motrin at home. Prescriptions: New benzonatate [Tessalon Perles] 100 mg capsule 100 mg PO BID PRN (Reason: cough) Qty: 14 RF: 0 No Action doxycycline monohydrate 100 mg capsule 100 mg PO BID Qty: 14 RF: 0 cephalexin 500 mg capsule 500 mg PO Q8H 7 Days Qty: 21 RF: 0 doxycycline hyclate 100 mg tablet 100 mg PO BID 3 Days Qty: 6 RF: 0 cephalexin 500 mg capsule 500 mg PO BID 3 Days Qty: 6 RF: 0 ondansetron 4 mg tablet,disintegrating 4 mg PO Q8H PRN (Reason: nausea and vomiting) Qty: 20 RF: 0 Referrals: Pearl Nino MD [Primary Care Provider] - 2 days Interventions: ED Discharge Assessment Last Done: 01/09/21 10:36 Discharge Date/Time: 01/09/21 10:37
[2021-01-09 09:35] LABS: COVID-19 Test Positive (Negative)
[2021-01-09 10:00] VITALS: PULSE 111; O2SAT 93
== END 2021-01-09 10:37 | disposition home or self-care (01) ==
PROVIDERS: Emergency Provider Emergency Medicine; PCP Internal Medicine
DX: U07.1 COVID-19 (principal); R05.9 Cough, unspecified; Z79.899 Other long term (current) drug therapy
CPT/HCPCS: 36415; 71045; 87635; 99283; 99284

== ENCOUNTER 2022-01-27 15:06 | Emergency (ER) | payer MEDICARE, MEDICAID, SELFPAY ==
[2022-01-27 15:13] VITALS: BP 138/78; BP 153/84; PULSE 102; PULSE 99; RESP 16; TEMP 36.7; O2SAT 98; BMI 36.9
--- NOTE | 2022-01-27 15:37 | ED.FALL ---
HPI - Fall General Chief Complaint: Fall Stated Complaint: MECH FALL,L HIP PAIN/RESOLVED PER EMS Time Seen by Provider: 01/27/22 15:25 History of Present Illness HPI Narrative: Patient complains of left gluteal pain after a fall He was getting out of the car and somehow fell onto his buttocks, at 1st he did feel pain in his hip and was brought to the emergency room, but now he has no complaint except mild discomfort at the spot on his left gluteal area where he fell He did hit his head he has no neck pain no other back pain no numbness no weakness no tingling no arm or leg pains Related Data Previous Rx's Medication Instructions Recorded cephalexin 500 mg capsule 500 mg PO Q8H 7 days #21 caps 05/15/20 doxycycline monohydrate 100 mg 100 mg PO BID #14 caps 05/15/20 capsule cephalexin 500 mg capsule 500 mg PO BID Wound/cellulitis 3 05/21/20 days #6 caps doxycycline hyclate 100 mg tablet 100 mg PO BID Wound/cellulitis 3 05/21/20 days #6 tabs ondansetron 4 mg disintegrating 4 mg PO Q8H PRN nausea and 10/23/20 tablet vomiting #20 tabs benzonatate 100 mg capsule 100 mg PO BID PRN cough #14 caps 01/09/21 (Marita Lozada) Allergies Allergy/AdvReac Type Severity Reaction Status Date / Time No Known Allergies Allergy Unverified 11/28/19 14:37 Review of Systems Review of Systems: Positive for left buttock pain after a fall only when seated Negatives are no head injury no loss of consciousness no headache no neck pain no numbness weakness or tingling no other back pains no muscle weakness no loss of sensation no chest pain no fainting no feeling faint no dizziness no confusion no extremity pains or swelling Yes all other systems are reviewed and are negative PMFSH Past Medical History Source: nursing notes reviewed Medical History Diabetes Surgical History History of vasectomy Hx of cholecystectomy Social History Social History (Updated 10/23/20 @ 09:33 by Lydia Saini DO) Alcohol intake: unknown Patient Tobacco Use Status: Never used Tobacco Advance Directives: No Advance Directives Information Provided: Yes Physical Exam Vital Signs: Vital Signs: Last Vital Signs Temp 98.1 F 01/27/22 15:13 Pulse 99 01/27/22 15:13 Resp 16 01/27/22 15:13 BP 153/84 H 01/27/22 15:13 Pulse Ox 98 01/27/22 15:13 O2 Del Method 01/27/22 15:13 BMI result Body Mass Index 36.9 General appearance comfortable cheerful cooperative no acute distress Head is normocephalic atraumatic Neck is supple nontender The chest wall is nontender Respiratory no distress Abdomen soft nontender The back there is no tenderness to any bones or the upper back the only tenderness is over hematoma in the muscles of the left gluteal area which also has some mild ecchymosis, there is no break in the skin, patient has good range of motion in his back with no discomfort Extremities full range of motion x4 including full range in the left hip, ambulates normally and comfortably Skin no lacerations Neuro no focal motor sensory deficits Course Course Course Narrative: Patient with hematoma on the the left lower gluteal area, no bony tenderness, full range of motion in both legs, ambulates easily and has no discomfort except when he sits on the area Initially when patient fell he had some left hip pain but now that pain is gone and there is no tenderness in the left hip and there is no discomfort with movement of the hip or weight-bearing No blood thinners, he feels fine and refuses pain medication and is discharged Discharge Plan Discharge Clinical Impression: Traumatic hematoma of buttock Patient Disposition: Home, Self-Care Additional Instructions: There is no sign of any dangerous or serious injury at this time There is a swollen discolored hematoma, or bruise, of the left buttock This will probably change colors and get better over coming week or 2 Return to the ER for any difficulty walking any severe pain any worse condition or any concerns Prescriptions: No Action doxycycline monohydrate 100 mg capsule 100 mg PO BID Qty: 14 0RF cephalexin 500 mg capsule 500 mg PO Q8H 7 Days Qty: 21 0RF doxycycline hyclate 100 mg tablet 100 mg PO BID 3 Days Qty: 6 0RF cephalexin 500 mg capsule 500 mg PO BID 3 Days Qty: 6 0RF ondansetron 4 mg tablet,disintegrating 4 mg PO Q8H PRN (Reason: nausea and vomiting) Qty: 20 0RF benzonatate [Tessalon Perles] 100 mg capsule 100 mg PO BID PRN (Reason: cough) Qty: 14 0RF Interventions: ED Discharge Assessment Last Done: 01/27/22 15:47 Discharge Date/Time: 01/27/22 15:49
== END 2022-01-27 15:49 | disposition home or self-care (01) ==
PROVIDERS: Emergency Provider Emergency Medicine; PCP Internal Medicine
DX: M54.50 Low back pain, unspecified (principal); Z79.899 Other long term (current) drug therapy
CPT/HCPCS: 99282

== ENCOUNTER 2022-01-29 14:13 | Emergency (ER) | payer MEDICARE, MEDICAID, SELFPAY ==
--- NOTE | ~2022-01-29 | XR_ITS ---
EXAMINATION: CHEST 2 VIEWS CLINICAL INFORMATION: general weakness . COMPARISON: 01/09/2021. TECHNIQUE: AP frontal and lateral views of the chest obtained FINDINGS: The lungs are hypoexpanded with minimal basilar atelectasis. No focal infiltrate, effusion, edema, or pneumothorax. Cardiac and mediastinal silhouettes are within normal limits for technique. No acute bony abnormality seen XR/XR chest 2V IMPRESSION: Hypoexpanded with minimal basilar atelectasis similar to the prior study
--- NOTE | ~2022-01-29 | CT_ITS ---
EXAMINATION: NONCONTRAST HEAD CT NONCONTRAST CERVICAL SPINE CT INDICATION INFORMATION: Head and neck pain status post fall COMPARISON: Head CT 05/01/2014 TECHNIQUE: Separate noncontrast CT examinations of the head and cervical spine were performed. Coronal and sagittal images were created for each examination at the technologist workstation. This CT examination was performed using dose optimization techniques as appropriate, variously including the following: *Automated exposure control *Adjustment of mA and/or kV according to patient size (this includes techniques or standardized protocols for targeted exams where dose is matched to indication/reason for exam; i.e. extremities or head) *Use of iterative reconstruction technique DLP: 1419 mGy-cm FINDINGS: HEAD: No intra or extra-axial fluid collection, hemorrhage, or mass. No ventriculomegaly. No midline shift or herniation. Basal cisterns are patent. Paez-white matter differentiation is maintained. No territorial encephalomalacia. Proportional prominence of the ventricles and sulcal spaces is consistent with mild volume loss. There is no abnormal attenuation within the brain parenchyma. No calvarial fracture. Minimal mucosal thickening in the maxillary antra. CERVICAL SPINE: Alignment: Normal. No subluxation. Straightening of the normal cervical lordosis. No subluxation. Vertebra: No acute fracture. No prevertebral soft tissue swelling. Degenerative disc disease: Moderate diffuse cervical spondylosis characterized by disc height loss and endplate sclerosis and proliferative change with advanced multilevel facet arthrosis and bilateral uncovertebral spurring. Other findings: Visualized right lung apex appears clear. Left lung apex was not included in the [id number]. No cervical lymphadenopathy or mass identified. CT/CT cervical spine wo IV con IMPRESSION: 1. No intracranial hemorrhage or calvarial fracture. 2. No traumatic subluxation or acute cervical spine fracture.
--- NOTE | ~2022-01-29 | CT_ITS ---
EXAMINATION: NONCONTRAST HEAD CT NONCONTRAST CERVICAL SPINE CT INDICATION INFORMATION: Head and neck pain status post fall COMPARISON: Head CT 05/01/2014 TECHNIQUE: Separate noncontrast CT examinations of the head and cervical spine were performed. Coronal and sagittal images were created for each examination at the technologist workstation. This CT examination was performed using dose optimization techniques as appropriate, variously including the following: *Automated exposure control *Adjustment of mA and/or kV according to patient size (this includes techniques or standardized protocols for targeted exams where dose is matched to indication/reason for exam; i.e. extremities or head) *Use of iterative reconstruction technique DLP: 1419 mGy-cm FINDINGS: HEAD: No intra or extra-axial fluid collection, hemorrhage, or mass. No ventriculomegaly. No midline shift or herniation. Basal cisterns are patent. Paez-white matter differentiation is maintained. No territorial encephalomalacia. Proportional prominence of the ventricles and sulcal spaces is consistent with mild volume loss. There is no abnormal attenuation within the brain parenchyma. No calvarial fracture. Minimal mucosal thickening in the maxillary antra. CERVICAL SPINE: Alignment: Normal. No subluxation. Straightening of the normal cervical lordosis. No subluxation. Vertebra: No acute fracture. No prevertebral soft tissue swelling. Degenerative disc disease: Moderate diffuse cervical spondylosis characterized by disc height loss and endplate sclerosis and proliferative change with advanced multilevel facet arthrosis and bilateral uncovertebral spurring. Other findings: Visualized right lung apex appears clear. Left lung apex was not included in the [id number]. No cervical lymphadenopathy or mass identified. CT/CT head/brain wo IV con IMPRESSION: 1. No intracranial hemorrhage or calvarial fracture. 2. No traumatic subluxation or acute cervical spine fracture.
--- NOTE | ~2022-01-29 | CT_ITS ---
EXAMINATION: CT ABDOMEN AND PELVIS WITHOUT CONTRAST CLINICAL INFORMATION: Weakness with decreased oral intake and diarrhea COMPARISON: CT abdomen pelvis 10/23/2020 TECHNIQUE: Multidetector volumetric imaging was performed from the superior aspect of the liver through the pubic symphysis. Sagittal and coronal reformatted images were obtained on the technologist's workstation. This CT examination was performed using dose optimization techniques as appropriate, variously including the following: *Automated exposure control *Adjustment of mA and/or kV according to patient size (this includes techniques or standardized protocols for targeted exams where dose is matched to indication/reason for exam; i.e. extremities or head) *Use of iterative reconstruction technique DLP: 975 mGy-cm FINDINGS: LUNG BASES: Elevation of the right hemidiaphragm with mild right basilar atelectasis. LIVER, GALLBLADDER, AND BILIARY TREE: Diffuse hepatic attenuation/steatosis. No liver lesion or biliary ductal dilation. Status post cholecystectomy. PANCREAS: Unremarkable. SPLEEN: Unremarkable. ADRENAL GLANDS: Unremarkable. KIDNEYS AND URETERS: Unchanged low-density bilateral renal cysts, largest approximately 8.6 cm in size exophytic from the left kidney. No renal calculi or hydronephrosis. BLADDER: Unremarkable. GASTROINTESTINAL TRACT: No dilated bowel loops. No bowel thickening. There is small amount of fluid seen throughout the colon consistent with history of diarrheal state. Appendix is no discretely visualized. No inflammatory changes at the cecal base. No ascites or free air. ABDOMINAL WALL: Possible small fat-containing bilateral inguinal hernias. LYMPH NODES: No lymphadenopathy. VASCULAR: Normal caliber abdominal aorta. Moderate vascular calcifications. PELVIC VISCERA: Unremarkable. OSSEOUS STRUCTURES: No acute fracture or suspicious osseous lesion. Mild multilevel degenerative disc disease and multilevel facet arthrosis in the thoracolumbar spine. Subcutaneous edema overlying the left buttock and a high density left gluteus george intramuscular hematoma measuring approximately 8.3 x 3.2 cm in size. Correlate clinically with recent trauma/fall and bruising/swelling on exam. CT/CT abdomen pelvis wo IV con IMPRESSION: 1. No acute intra-abdominal process identified. Small amount of fluid seen throughout the colon consistent with history of diarrheal state. No colonic wall thickening or inflammatory change to suggest colitis on the CT. 2. Subcutaneous edema overlying the left buttock and a left gluteus george intramuscular hematoma measuring approximately 8.3 x 3.2 cm in size. 3. No acute fracture. 4. Additional ancillary findings, as described. Fleischner guidelines were followed.
[2022-01-29 14:22] VITALS: BP 109/62; BP 137/79; PULSE 106; PULSE 97; RESP 20; TEMP 36.6; O2SAT 95; O2SAT 96; BMI 37.5
[2022-01-29 14:31] LABS: Glucose, Whole Blood 230 mg/dL (60-115)
--- NOTE | 2022-01-29 15:30 | ECG_ITS ---
Test Reason : NASUIA VOMITING Blood Pressure : / mmHG Vent. Rate : 102 BPM Atrial Rate : 102 BPM P-R Int : 146 ms QRS Dur : 080 ms QT Int : 372 ms P-R-T Axes : 045 015 045 degrees QTc Int : 484 ms Sinus tachycardia RSR' or QR pattern in V1 suggests right ventricular conduction delay Nonspecific T wave abnormality Abnormal ECG When compared with ECG of 03-JAN-2017 18:08, T wave amplitude has decreased in Inferior leads Referred By: Josselin Roberts Electronically Signed By:MELVIN DAS MD
--- NOTE | 2022-01-29 16:23 | ED_ITS ---
HPI - Nausea/Vomiting/Diarrhea General Chief complaint: Nausea/Vomiting/Diarrhea Stated complaint: DIARRHEA X'S DAYS Time Seen by Provider: 01/29/22 16:02 Source: patient Mode of arrival: EMS History of Present Illness HPI Narrative: This is a 76-year-old male with history of diabetes, high blood pressure who comes in with chronic unsteadiness and uses a cane and walker at home and reports that for the past 2-3 days he has had increasing weakness associated with multiple episodes of nonbloody diarrhea throughout the day. This is not been accompanied by any abdominal pain, patient has been mildly nauseous but no vomiting and denies any prior history of intestinal obstruction. In addition, he denies any fever, chills, shortness of breath, chest pain/palpitations and denies any urinary pain/burning/frequency. He denies any use of blood thinners or ?water pills? and states that he has had multiple falls over the past couple of days and none of them have been associated with loss of consciousness or head strike. Related Data Previous Rx's Medication Instructions Recorded cephalexin 500 mg capsule 500 mg PO Q8H 7 days #21 caps 05/15/20 doxycycline monohydrate 100 mg 100 mg PO BID #14 caps 05/15/20 capsule cephalexin 500 mg capsule 500 mg PO BID Wound/cellulitis 3 05/21/20 days #6 caps doxycycline hyclate 100 mg tablet 100 mg PO BID Wound/cellulitis 3 05/21/20 days #6 tabs ondansetron 4 mg disintegrating 4 mg PO Q8H PRN nausea and 10/23/20 tablet vomiting #20 tabs benzonatate 100 mg capsule 100 mg PO BID PRN cough #14 caps 01/09/21 (Marita Lozada) Allergies Allergy/AdvReac Type Severity Reaction Status Date / Time No Known Allergies Allergy Unverified 11/28/19 14:37 Review of Systems Review of Systems: Pertinent positives and negatives as stated in HPI 10 point review of systems is otherwise negative. [facility] Past Medical History Source: nursing notes reviewed Medical History Diabetes Surgical History History of vasectomy Hx of cholecystectomy Social History Social History Alcohol intake: unknown Patient Tobacco Use Status: Never used Tobacco Advance Directives: No Physical Exam Vital Signs: Vital Signs: Last Vital Signs Temp 97.8 F 01/29/22 21:50 Pulse 97 01/29/22 21:50 Resp 18 01/29/22 21:50 BP 137/80 01/29/22 21:50 Pulse Ox 98 01/29/22 21:50 O2 Del Method 01/29/22 21:50 BMI result Body Mass Index 37.5 VITAL SIGNS: Reviewed. GENERAL: Elevated BMI, Well developed, well nourished, in no acute distress. HEAD: Normocephalic/atraumatic EYES: PERRLA, EOMI EARS: Ext canals without abnormality OROPHARYNX: no oral lesions noted, posterior pharynx clear LUNGS: Normal breath sounds. No adventitious sounds or accessory muscle use. SpO2<95> CARDIOVASCULAR: Regular rate and rhythm without noted murmurs, no JVD or lower extremity edema. ABDOMEN: Soft, non-tender, non-distended with bowel sounds. MUSCULOSKELETAL: No tenderness, deformities, or effusions noted on gross inspection. EXTREMITIES: No cyanosis, clubbing or edema. SKIN: Inspection of the skin reveals no rashes NEUROLOGIC: Alert and oriented x 3. Strength and sensation to light touch were grossly intact x 4. Course Course Course Narrative: 1630: 76-year-old male with history and clinical presentation consistent with chronic ?unsteadiness? and likely this is been exacerbated by mild dehydration secondary to multiple episodes of nonbloody diarrhea. Will obtain labs as well as imaging studies to ensure no fractures or intracranial pathologies are identified, provide rehydration via IV and re-evaluate. On review of all investigations although there is a noted leukocytosis, patient is afebrile and otherwise appears clinically well and no obvious etiology at this time. There is a possibility that the leukocytosis is consistent with a stress/reactive response to underlying left gluteal hematoma. Dehydration is likely the contributing factor to elevated lactic acid. After 2 L of IV fluids, patient is feeling much better and is noted to ambulate well without difficulty and is requesting to go home. Repeat lactic acid after receiving both L of IV fluids is down trending and patient is discharged home in stable condition. Medications Administered Discontinued Medications Generic Name Dose Route Start Last Admin Trade Name Freq PRN Reason Stop Dose Admin Sodium Chloride 1,000 mls @ 999 mls/hr 01/29/22 17:00 01/29/22 18:51 Ns IV 01/29/22 18:00 Infused .Q1H1M ITZ Infusion Sodium Chloride 1,000 mls @ 999 mls/hr 01/29/22 20:00 01/29/22 21:53 Ns IV 01/29/22 21:00 Infused .Q1H1M ITZ Infusion MDM - Nausea/Vomiting/Diarrhea Lab Data Result diagrams: 01/29/22 16:23 01/29/22 16:23 Labs: Lab Results 01/29/22 01/29/22 01/29/22 Range/Units 14:29 16:23 16:23 WBC 15.6 H (4.8-10.8) X10*3/uL RBC 4.81 (4.60-5.80) X10*6/uL Hgb 14.7 (14.0-18.0) g/dl Hct 41.8 L (42.0-52.0) % MCV 86.9 (80.0-98.0) fL MCH 30.6 (27.0-33.0) pg MCHC 35.2 (31.0-36.0) g/dl RDW 13.4 (11.0-16.0) % Plt Count 253 (160-400) X10*3/uL MPV 9.1 L (9.4-12.4) fL Immature Gran % (Auto) 0.6 H (0.0-0.4) % Neut % (Auto) 81.4 H (45-73) % Lymph % (Auto) 10.1 L (20-40) % [place] % (Auto) 7.3 (2-11) % Eos % (Auto) 0.3 (0-4) % Baso % (Auto) 0.3 (0-2) % Lymph # (Auto) 1.6 (1.2-4.9) X10*3/uL [place] # (Auto) 1.1 (0.1-1.2) X10*3/uL Eos # (Auto) 0.0 (0.0-0.4) X10*3/uL Baso # (Auto) 0.1 (0.0-0.2) X10*3/uL Abs Immat Gran (auto) 0.09 H (0.00-0.03) X10*3/uL Absolute Neuts (auto) 12.7 H (2.0-8.3) x10*3/uL Absolute Nucleated RBC 0.000 (0.0-0.012) X10*3/uL Nucleated RBC % (auto) 0.0 (0.0-0.2) /100WBC PT 13.6 H (10.0-13.1) SEC INR 1.2 H (0.9-1.1) Sodium (135-145) mmol/L Potassium (3.3-5.1) mmol/L Chloride (96-108) mmol/L Carbon Dioxide (22-29) mmol/L Anion Gap (12-20) BUN (9-16) mg/dL Creatinine (0.5-1.4) mg/dL Estim Creat Clear Calc Estimated GFR POC Glucose 230 H (60-115) mg/dL Random Glucose (60-115) mg/dL Lactic Acid (0.5-2.0) mmol/L Lactic Acid F/U @ 2Hr (0.5-2.0) mmol/L Lactic Acid F/U @ 4Hr (0.5-2.0) mmol/L Calcium (8.4-10.2) mg/dL Magnesium (1.6-2.6) mg/dL Total Bilirubin (0.0-1.0) mg/dL AST (5-37) U/L ALT (0-40) U/L Alkaline Phosphatase (39-117) U/L Troponin I High Sens (<3.5-35.0) ng/L Total Protein (6.5-8.0) g/dL Albumin (3.5-5.0) g/dL Lipase (8-78) U/L Urine Color Urine Appearance Urine pH (5.0-9.0) Ur Specific [place] (1.005-1.025) Urine Protein (Neg-Trace) mg/dL Urine Glucose (UA) (Negative) mg/dL Urine Ketones (Negative) mg/dL Urine Blood (Negative) Urine Nitrite (Negative) Ur Leukocyte Esterase (Negative) C. difficile Tox B Gene (Negative) Influenza Type A (PCR) (Negative) Influenza Type B (PCR) (Negative) RSV RNA Qual (PCR) (Negative) SARS-CoV-2 RNA (RT-PCR) (Negative) 01/29/22 01/29/22 01/29/22 Range/Units 16:23 16:23 16:24 WBC (4.8-10.8) X10*3/uL RBC (4.60-5.80) X10*6/uL Hgb (14.0-18.0) g/dl Hct (42.0-52.0) % MCV (80.0-98.0) fL MCH (27.0-33.0) pg MCHC (31.0-36.0) g/dl RDW (11.0-16.0) % Plt Count (160-400) X10*3/uL MPV (9.4-12.4) fL Immature Gran % (Auto) (0.0-0.4) % Neut % (Auto) (45-73) % Lymph % (Auto) (20-40) % [place] % (Auto) (2-11) % Eos % (Auto) (0-4) % Baso % (Auto) (0-2) % Lymph # (Auto) (1.2-4.9) X10*3/uL [place] # (Auto) (0.1-1.2) X10*3/uL Eos # (Auto) (0.0-0.4) X10*3/uL Baso # (Auto) (0.0-0.2) X10*3/uL Abs Immat Gran (auto) (0.00-0.03) X10*3/uL Absolute Neuts (auto) (2.0-8.3) x10*3/uL Absolute Nucleated RBC (0.0-0.012) X10*3/uL Nucleated RBC % (auto) (0.0-0.2) /100WBC PT (10.0-13.1) SEC INR (0.9-1.1) Sodium 133 L (135-145) mmol/L Potassium 4.1 (3.3-5.1) mmol/L Chloride 99 (96-108) mmol/L Carbon Dioxide 22 (22-29) mmol/L Anion Gap 16 (12-20) BUN 29 H (9-16) mg/dL Creatinine 0.99 (0.5-1.4) mg/dL Estim Creat Clear Calc 75.8 Estimated GFR > 60 POC Glucose (60-115) mg/dL Random Glucose 211 H (60-115) mg/dL Lactic Acid (0.5-2.0) mmol/L Lactic Acid F/U @ 2Hr (0.5-2.0) mmol/L Lactic Acid F/U @ 4Hr (0.5-2.0) mmol/L Calcium 8.9 (8.4-10.2) mg/dL Magnesium 1.6 (1.6-2.6) mg/dL Total Bilirubin 2.3 H (0.0-1.0) mg/dL AST 33 (5-37) U/L ALT 23 (0-40) U/L Alkaline Phosphatase 75 (39-117) U/L Troponin I High Sens 9.1 (<3.5-35.0) ng/L Total Protein 6.5 (6.5-8.0) g/dL Albumin 4.0 (3.5-5.0) g/dL Lipase 17 (8-78) U/L Urine Color Urine Appearance Urine pH (5.0-9.0) Ur Specific [place] (1.005-1.025) Urine Protein (Neg-Trace) mg/dL Urine Glucose (UA) (Negative) mg/dL Urine Ketones (Negative) mg/dL Urine Blood (Negative) Urine Nitrite (Negative) Ur Leukocyte Esterase (Negative) C. difficile Tox B Gene (Negative) Influenza Type A (PCR) NEGATIVE (Negative) Influenza Type B (PCR) NEGATIVE (Negative) RSV RNA Qual (PCR) NEGATIVE (Negative) SARS-CoV-2 RNA (RT-PCR) NEGATIVE (Negative) 01/29/22 01/29/22 01/29/22 Range/Units 16:59 18:19 19:28 WBC (4.8-10.8) X10*3/uL RBC (4.60-5.80) X10*6/uL Hgb (14.0-18.0) g/dl Hct (42.0-52.0) % MCV (80.0-98.0) fL MCH (27.0-33.0) pg MCHC (31.0-36.0) g/dl RDW (11.0-16.0) % Plt Count (160-400) X10*3/uL MPV (9.4-12.4) fL Immature Gran % (Auto) (0.0-0.4) % Neut % (Auto) (45-73) % Lymph % (Auto) (20-40) % [place] % (Auto) (2-11) % Eos % (Auto) (0-4) % Baso % (Auto) (0-2) % Lymph # (Auto) (1.2-4.9) X10*3/uL [place] # (Auto) (0.1-1.2) X10*3/uL Eos # (Auto) (0.0-0.4) X10*3/uL Baso # (Auto) (0.0-0.2) X10*3/uL Abs Immat Gran (auto) (0.00-0.03) X10*3/uL Absolute Neuts (auto) (2.0-8.3) x10*3/uL Absolute Nucleated RBC (0.0-0.012) X10*3/uL Nucleated RBC % (auto) (0.0-0.2) /100WBC PT (10.0-13.1) SEC INR (0.9-1.1) Sodium (135-145) mmol/L Potassium (3.3-5.1) mmol/L Chloride (96-108) mmol/L Carbon Dioxide (22-29) mmol/L Anion Gap (12-20) BUN (9-16) mg/dL Creatinine (0.5-1.4) mg/dL Estim Creat Clear Calc Estimated GFR POC Glucose (60-115) mg/dL Random Glucose (60-115) mg/dL Lactic Acid 3.4 H* (0.5-2.0) mmol/L Lactic Acid F/U @ 2Hr (0.5-2.0) mmol/L Lactic Acid F/U @ 4Hr (0.5-2.0) mmol/L Calcium (8.4-10.2) mg/dL Magnesium (1.6-2.6) mg/dL Total Bilirubin (0.0-1.0) mg/dL AST (5-37) U/L ALT (0-40) U/L Alkaline Phosphatase (39-117) U/L Troponin I High Sens (<3.5-35.0) ng/L Total Protein (6.5-8.0) g/dL Albumin (3.5-5.0) g/dL Lipase (8-78) U/L Urine Color Yellow Urine Appearance Clear Urine pH 5.5 (5.0-9.0) Ur Specific [place] >= 1.030 H (1.005-1.025) Urine Protein Trace (Neg-Trace) mg/dL Urine Glucose (UA) 250 H (Negative) mg/dL Urine Ketones Trace (Negative) mg/dL Urine Blood Negative (Negative) Urine Nitrite Negative (Negative) Ur Leukocyte Esterase Negative (Negative) C. difficile Tox B Gene NEGATIVE (Negative) Influenza Type A (PCR) (Negative) Influenza Type B (PCR) (Negative) RSV RNA Qual (PCR) (Negative) SARS-CoV-2 RNA (RT-PCR) (Negative) 01/29/22 01/29/22 01/29/22 Range/Units 19:34 22:02 23:00 WBC (4.8-10.8) X10*3/uL RBC (4.60-5.80) X10*6/uL Hgb (14.0-18.0) g/dl Hct (42.0-52.0) % MCV (80.0-98.0) fL MCH (27.0-33.0) pg MCHC (31.0-36.0) g/dl RDW (11.0-16.0) % Plt Count (160-400) X10*3/uL MPV (9.4-12.4) fL Immature Gran % (Auto) (0.0-0.4) % Neut % (Auto) (45-73) % Lymph % (Auto) (20-40) % [place] % (Auto) (2-11) % Eos % (Auto) (0-4) % Baso % (Auto) (0-2) % Lymph # (Auto) (1.2-4.9) X10*3/uL [place] # (Auto) (0.1-1.2) X10*3/uL Eos # (Auto) (0.0-0.4) X10*3/uL Baso # (Auto) (0.0-0.2) X10*3/uL Abs Immat Gran (auto) (0.00-0.03) X10*3/uL Absolute Neuts (auto) (2.0-8.3) x10*3/uL Absolute Nucleated RBC (0.0-0.012) X10*3/uL Nucleated RBC % (auto) (0.0-0.2) /100WBC PT (10.0-13.1) SEC INR (0.9-1.1) Sodium (135-145) mmol/L Potassium (3.3-5.1) mmol/L Chloride (96-108) mmol/L Carbon Dioxide (22-29) mmol/L Anion Gap (12-20) BUN (9-16) mg/dL Creatinine (0.5-1.4) mg/dL Estim Creat Clear Calc Estimated GFR POC Glucose (60-115) mg/dL Random Glucose (60-115) mg/dL Lactic Acid 1.8 (0.5-2.0) mmol/L Lactic Acid F/U @ 2Hr 2.8 H* (0.5-2.0) mmol/L Lactic Acid F/U @ 4Hr 2.3 H* (0.5-2.0) mmol/L Calcium (8.4-10.2) mg/dL Magnesium (1.6-2.6) mg/dL Total Bilirubin (0.0-1.0) mg/dL AST (5-37) U/L ALT (0-40) U/L Alkaline Phosphatase (39-117) U/L Troponin I High Sens (<3.5-35.0) ng/L Total Protein (6.5-8.0) g/dL Albumin (3.5-5.0) g/dL Lipase (8-78) U/L Urine Color Urine Appearance Urine pH (5.0-9.0) Ur Specific [place] (1.005-1.025) Urine Protein (Neg-Trace) mg/dL Urine Glucose (UA) (Negative) mg/dL Urine Ketones (Negative) mg/dL Urine Blood (Negative) Urine Nitrite (Negative) Ur Leukocyte Esterase (Negative) C. difficile Tox B Gene (Negative) Influenza Type A (PCR) (Negative) Influenza Type B (PCR) (Negative) RSV RNA Qual (PCR) (Negative) SARS-CoV-2 RNA (RT-PCR) (Negative) ECG Data Attestation: I personally reviewed and interpreted this ECG as follows: Prior ECG tracings: available for review Interpretation: Sinus tachycardia, HR-102, no STEMI, [place]/QRS/QTC is within normal limits. Discharge Plan Discharge Clinical Impression: Dehydration, Gastroenteritis, Hematoma Patient Disposition: Home, Self-Care Instructions: Dehydration (ED), Gastroenteritis (ED), Nutrition Tips for Relief of Diarrhea (ED), Hematoma (ED) Additional Instructions: 1. Resume all home medications as prescribed. Continue to drink plenty of water and follow the guidelines for eating foods that will resolve your diarrhea. 2. Follow-up with your primary care provider by calling the office on Monday and setting up appointment for re-evaluation further outpatient management. Return to the ER for worsening symptoms. Prescriptions: No Action doxycycline monohydrate 100 mg capsule 100 mg PO BID Qty: 14 0RF cephalexin 500 mg capsule 500 mg PO Q8H 7 Days Qty: 21 0RF doxycycline hyclate 100 mg tablet 100 mg PO BID 3 Days Qty: 6 0RF cephalexin 500 mg capsule 500 mg PO BID 3 Days Qty: 6 0RF ondansetron 4 mg tablet,disintegrating 4 mg PO Q8H PRN (Reason: nausea and vomiting) Qty: 20 0RF benzonatate [Tessalon Perles] 100 mg capsule 100 mg PO BID PRN (Reason: cough) Qty: 14 0RF Referrals: Pearl Nino MD [Primary Care Provider] -
[2022-01-29 16:30] LABS: MANUAL DIFF FLAG NO
[2022-01-29 16:31] VITALS: BP 99/62; PULSE 101; RESP 16; TEMP 36.3; O2SAT 98
[2022-01-29 16:31] LABS: Basophils Absolute Auto 0.1 X10*3/uL (0.0-0.2); Basophils Percent Auto 0.3 % (0-2); Eosinophils Percent Auto 0.3 % (0-4); Hematocrit 41.8 % (42.0-52.0); Hemoglobin 14.7 g/dl (14.0-18.0); Imm Gran Abs Auto 0.09 X10*3/uL (0.00-0.03); Imm Gran Pct Auto 0.6 % (0.0-0.4); Lymphocytes Absolute Auto 1.6 X10*3/uL (1.2-4.9); Lymphocytes Percent Auto 10.1 % (20-40); Mean Corpuscular HGB Conc 35.2 g/dl (31.0-36.0); Mean Corpuscular Hemoglobin 30.6 pg (27.0-33.0); Mean Corpuscular Volume 86.9 fL (80.0-98.0); Mean Platelet Volume 9.1 fL (9.4-12.4); Monocytes Absolute Auto 1.1 X10*3/uL (0.1-1.2); Monocytes Percent Auto 7.3 % (2-11); Neutrophils Absolute Auto 12.7 x10*3/uL (2.0-8.3); Neutrophils Percent Auto 81.4 % (45-73); Platelet Count 253 X10*3/uL (160-400); Red Blood Count 4.81 X10*6/uL (4.60-5.80); Red Cell Distribution Width 13.4 % (11.0-16.0); White Blood Count 15.6 X10*3/uL (4.8-10.8)
[2022-01-29 16:37] LABS: INTERNATIONAL NORM RATIO 1.2 (0.9-1.1); Prothrombin Time 13.6 SEC (10.0-13.1)
[2022-01-29 16:48] LABS: Alanine Aminotransferase 23 U/L (0-40); Alkaline Phosphatase 75 U/L (39-117); Anion Gap 16 (12-20); Aspartate Amino Transferase 33 U/L (5-37); Bilirubin Total 2.3 mg/dL (0.0-1.0); Blood Urea Nitrogen 29 mg/dL (9-16); Calcium 8.9 mg/dL (8.4-10.2); Carbon Dioxide 22 mmol/L (22-29); Chloride 99 mmol/L (96-108); Creatinine Clr Calc Pharmacy 75.8; Estimated Glomerular Filt Rate > 60; Glucose Random 211 mg/dL (60-115); Lipase 17 U/L (8-78); Magnesium 1.6 mg/dL (1.6-2.6); Potassium 4.1 mmol/L (3.3-5.1); Sodium 133 mmol/L (135-145); Total Protein 6.5 g/dL (6.5-8.0)
[2022-01-29 16:52] LABS: Troponin-I High Sensitivity 9.1 ng/L (<3.5-35.0)
[2022-01-29 17:10] LABS: Influenza A PCR NEGATIVE (Negative); Influenza B PCR NEGATIVE (Negative); Resp Syncy Virus RNA Qual PCR NEGATIVE (Negative); SARS COV2 PCR INHOUSE NEGATIVE (Negative)
[2022-01-29] MEDS: 0.9 % Sodium Chloride 1,000 ML 999 ML IV ×2 (17:13→20:52)
[2022-01-29 17:20] LABS: Lactic Acid 3.4 mmol/L (0.5-2.0)
[2022-01-29 18:00] VITALS: BP 126/78; PULSE 100; RESP 16; TEMP 36.8; O2SAT 98
--- NOTE | 2022-01-29 18:15 | PC.NURSE ---
1800 rounding done ,pt was incontinent of lg loose bowel movement ,sample send to lab ,care given vs taken .
[2022-01-29 19:03] LABS: Reflex Lactate? Lactic Acid Added
[2022-01-29 19:11] LABS: CDiff Gene PCR NEGATIVE (Negative)
[2022-01-29 19:35] LABS: Appearance Urine Clear; Color Urine Yellow; Glucose Urine UA 250 mg/dL (Negative); Leukocyte Esterase Urine Negative (Negative); Nitrite Urine Negative (Negative); PH 5.5 (5.0-9.0); Specific Gravity - Urine >= 1.030 (1.005-1.025); Urine Blood Negative (Negative); Urine Ketones Trace mg/dL (Negative); Urine Protein Trace mg/dL (Neg-Trace)
[2022-01-29 19:58] LABS: ~Lactic Acid-LAB USE ONLY 2.8 mmol/L (0.5-2.0)
[2022-01-29 20:00] VITALS: BP 98/74; PULSE 99; RESP 16; TEMP 36.6; O2SAT 97
[2022-01-29 21:37] LABS: Reflex Lactate? 2 Y
[2022-01-29 21:50] VITALS: BP 137/80; PULSE 97; RESP 18; TEMP 36.6; O2SAT 98
--- NOTE | 2022-01-29 21:51 | PC.NURSE ---
pt walk about 20 ft with walker ,pt gait was steady staff was close by ,pt walk back to bed and put him self in bed with no assistance from staff,md Cook is aware .
[2022-01-29 22:25] LABS: ~Lactic Acid-LAB USE ONLY 2.3 mmol/L (0.5-2.0)
[2022-01-29 23:19] LABS: Lactic Acid 1.8 mmol/L (0.5-2.0)
== END 2022-01-29 23:46 | disposition home or self-care (01) ==
PROVIDERS: Physician Assistant Medical; Emergency Provider Student in an Organized Health Care Education/Training Program; PCP Internal Medicine
DX: E86.0 Dehydration (principal); K52.9 Noninfective gastroenteritis and colitis, unspecified; S30.0XXA Contusion of lower back and pelvis, initial encounter; W19.XXXA Unspecified fall, initial encounter; R53.1 Weakness; R26.81 Unsteadiness on feet; R00.0 Tachycardia, unspecified; I10 Essential (primary) hypertension; E11.9 Type 2 diabetes mellitus without complications; E66.3 Overweight; Z68.37 Body mass index [BMI] 37.0-37.9, adult; Z20.822 Contact with and (suspected) exposure to COVID-19; Z91.81 History of falling; Y93.9 Activity, unspecified; Y92.9 Unspecified place or not applicable; Y99.9 Unspecified external cause status
CPT/HCPCS: 0241U; 36415; 51798; 70450; 71046; 72125; 74176; 80053; 81003; 82947; 83605; 83690; 83735; 84484; 85025; 85610; 87040; 87493; 93005; 96360; 96361; 99284; 99285